=== PATIENT | male | born 1960 | race Caucasian/White ===

== ENCOUNTER 2016-12-22 12:23 | Emergency (ER) | payer OTHER ==
[2016-12-22 12:42] LABS: Glucose,Whole Blood 98 mg/dL (75-99)
[2016-12-22] MEDS ORDERED: RX INFO: IV CONTRAST WAS GIVEN 1 EACH MISC MISCELLANE PRN (12:48)
[2016-12-22] MEDS ORDERED: SODIUM CHLORIDE 0.9% 1,000 ML IV STA ×2 (12:48)
[2016-12-22] MEDS ORDERED: MORPHINE SULFATE 4 MG/ML SYRINGE IVP STA ×2 (12:49→14:24)
[2016-12-22 13:02] LABS: Basophils # (A) 0.1 k/uL (0-0.2); Basophils % (A) 1 %; CH 29.9; CHCM 34.9; Eosinophils # (A) 0.3 k/uL (0-0.7); Eosinophils % (A) 4 %; HCT 44.7 % (39.0-53.0); HDW 2.76; HGB 15.8 gm/dL (13.0-17.5); Luc # (Auto) 0.24; Luc % (Auto) 3; Lymphocytes % (A) 38 %; MCH 30.4 pg (25.0-35.0); MCHC 35.3 g/dL (31.0-37.0); MCV 86.1 fL (80.0-100.0); Mean Platelet Volume 7.5; Monocytes # (A) 0.4 k/uL (0-1.0); Monocytes % (A) 6 %; Neutrophils # (A) 3.8 k/uL (1.3-7.7); Neutrophils % (A) 48 %; RBC 5.19 m/uL (4.30-5.90); RDW 13.3 % (11.5-15.5); WBC 7.9 k/uL (3.8-10.6); WBC (Perox) 8.22
--- NOTE | 2016-12-22 13:06 | XR ---
EXAMINATION TYPE: XR shoulder limited LT DATE OF EXAM: 12/22/2016 COMPARISON: NONE HISTORY: Pain TECHNIQUE: One view is submitted. FINDINGS: The osseous structures are intact. There is no acute fracture or dislocation. Arthropathy of the AC joint noted.. IMPRESSION: 1. No acute process.
--- NOTE | 2016-12-22 13:08 | XR ---
EXAMINATION TYPE: XR chest 1V portable DATE OF EXAM: 12/22/2016 HISTORY: trauma. REFERENCE: NONE. FINDINGS: There are multiple, bilateral pulmonary nodules, likely representing granulomas. Heart size is upper limits of normal. Pleural spaces are clear. No definite shoulder abnormality is seen. IMPRESSION: 1. PROBABLE OLD GRANULOMATOUS DISEASE. 2. BORDERLINE CARDIOMEGALY.
--- NOTE | 2016-12-22 13:09 | XR ---
EXAMINATION TYPE: XR pelvis AP view DATE OF EXAM: 12/22/2016 COMPARISON: NONE HISTORY: Pain The osseous structures are intact and the joint spaces are preserved. No acute fracture is seen. Vi sualized bowel gas pattern is nonspecific. Degenerative change lower lumbar spine. Chronic deformity of the right iliac bone. Previous surgery suggested. Arthropathy of the hips. IMPRESSION: 1. No acute fracture. 2. There is a chronic deformity of the right iliac bone which may be either postsurgical or related t o osteochondroma. In the absence of a history of trauma or bone scan.
[2016-12-22 13:13] LABS: ALT 32 U/L (21-72); AST 32 U/L (17-59); Alcohol <10 mg/dL; Alkaline Phosphatase 64 U/L (38-126); Amylase 72 U/L (30-110); Anion Gap 10 mmol/L; Blood Urea Nitrogen 22 mg/dL (9-20); Calcium 9.5 mg/dL (8.4-10.2); Carbon Dioxide 24 mmol/L (22-30); Chloride 108 mmol/L (98-107); Glucose 98 mg/dL (74-99); Non-African American GFR(MDRD) >60 (>60 ml/min/1.73 sqM); Potassium 4.1 mmol/L (3.5-5.1); Sodium 142 mmol/L (137-145); Total Bilirubin 0.3 mg/dL (0.2-1.3)
[2016-12-22 13:20] LABS: Partial Thromboplastin Time 22.7 sec (22.0-30.0)
--- NOTE | 2016-12-22 13:29 | ED ---
General Adult HPI - General Chief complaint: Fall Stated complaint: shoulder injury Time Seen by Provider: 12/22/16 12:32 Source: patient, RN notes reviewed, old records reviewed Mode of arrival: ambulatory Limitations: no limitations - History of Present Illness Initial comments: This is a 56-year-old male to the ER for evaluation. Patient presented today for evaluation regard to trauma. Patient states he was doing some work on his roof fell backwards landing on his left shoulder. Complaining of severe left shoulder pain. Patient denies loss of consciousness. But there is had. Patient denies any other injuries, was able to ambulate, did walk into emergency room under his own power. - Related Data Home Medications Medication Instructions Recorded Confirmed Calcium Carbonate [Tums] 1,000 mg PO QID PRN 12/22/16 12/22/16 Previous Rx's Medication Instructions Recorded HYDROcodone/APAP 5-325MG [Susan 1 tab PO Q6HR PRN #30 tab 12/22/16 5-325] Naproxen [Naprosyn] 500 mg PO Q12HR PRN #30 tab 12/22/16 Allergies Allergy/AdvReac Type Severity Reaction Status Date / Time No Known Allergies Allergy Verified 12/22/16 14:13 Review of Systems ROS Statement: Those systems with pertinent positive or pertinent negative responses have been documented in the HPI. ROS Other: All systems not noted in ROS Statement are negative. Past Medical History Additional Past Medical History / Comment(s): one kidney History of Any Multi-Drug Resistant Organisms: None Reported Past Surgical History: No Surgical Hx Reported Additional Past Surgical History / Comment(s): ear Past Psychological History: No Psychological Hx Reported Smoking Status: Never smoker Past Alcohol Use History: None Reported Past Drug Use History: None Reported General Exam - General Exam Comments Initial Comments: GCS of 15, airways patent, trachea is midline, no shortness of breath and breath sounds are equal bilaterally. Limitations: no limitations General appearance: alert, in no apparent distress Head exam: Present: atraumatic, normocephalic, normal inspection Eye exam: Present: normal appearance, PERRL, EOMI. Absent: scleral icterus, conjunctival injection, periorbital swelling ENT exam: Present: normal exam, mucous membranes moist Neck exam: Present: normal inspection. Absent: tenderness, meningismus, lymphadenopathy Respiratory exam: Present: normal lung sounds bilaterally. Absent: respiratory distress, wheezes, rales, rhonchi, stridor Cardiovascular Exam: Present: regular rate, normal rhythm, normal heart sounds. Absent: systolic murmur, diastolic murmur, rubs, gallop, clicks GI/Abdominal exam: Present: soft, normal bowel sounds. Absent: distended, tenderness, guarding, rebound, rigid Extremities exam: Present: normal inspection, full ROM, normal capillary refill , other (Left upper extremity deformity, likely dislocation). Absent: tenderness, pedal edema, joint swelling, calf tenderness Back exam: Present: normal inspection Neurological exam: Present: alert, oriented X3, CN II-XII intact Psychiatric exam: Present: normal affect, normal mood Skin exam: Present: warm, dry, intact, normal color. Absent: rash Course Vital Signs 12/22/16 12:24 Temperature 97.5 F L Pulse Rate 76 Respiratory 22 Rate Blood Pressure 155/94 O2 Sat by Pulse 97 Oximetry - Reevaluation(s) Reevaluation #1: 12/22/16 13:29 Pain is adequate pain relief at this time Reevaluation #2: 12/22/16 14:55 Patient has adequate pain control EKG Findings - EKG Comments: EKG Findings:: EKG shows normal sinus rhythm rate of 70, DE 134, QRS 84, QTC 421 Medical Decision Making - Medical Decision Making 56 [facility] for evaluation status post fall, patient has no injury from fall of shoulder pain. We'll treat with pain control and patient can be discharged home - Lab Data Result diagrams: 12/22/16 12:48 12/22/16 12:48 Lab Results 12/22/16 12/22/16 12/22/16 Range/Units 12:40 12:48 12:48 WBC 7.9 (3.8-10.6) k/uL RBC 5.19 (4.30-5.90) m/uL Hgb 15.8 (13.0-17.5) gm/dL Hct 44.7 (39.0-53.0) % MCV 86.1 (80.0-100.0) fL MCH 30.4 (25.0-35.0) pg MCHC 35.3 (31.0-37.0) g/dL RDW 13.3 (11.5-15.5) % Plt Count 191 (150-450) k/uL Neutrophils % 48 % Lymphocytes % 38 % Monocytes % 6 % Eosinophils % 4 % Basophils % 1 % Neutrophils # 3.8 (1.3-7.7) k/uL Lymphocytes # 3.0 (1.0-4.8) k/uL Monocytes # 0.4 (0-1.0) k/uL Eosinophils # 0.3 (0-0.7) k/uL Basophils # 0.1 (0-0.2) k/uL PT (9.0-12.0) sec INR (<1.2) APTT (22.0-30.0) sec Sodium (137-145) mmol/L Potassium (3.5-5.1) mmol/L Chloride (98-107) mmol/L Carbon Dioxide (22-30) mmol/L Anion Gap mmol/L BUN (9-20) mg/dL Creatinine (0.66-1.25) mg/dL Est GFR (MDRD) Af Amer (>60 ml/min/1.73 sqM) Est GFR (MDRD) Non-Af (>60 ml/min/1.73 sqM) Glucose (74-99) mg/dL POC Glucose (mg/dL) 98 (75-99) mg/dL POC Glu Certified Medical Technician ID Plasma Lactic Acid Mayank (0.7-2.0) mmol/L Calcium (8.4-10.2) mg/dL Total Bilirubin (0.2-1.3) mg/dL AST (17-59) U/L ALT (21-72) U/L Alkaline Phosphatase (38-126) U/L Total Creatine Kinase (55-170) U/L CK-MB (CK-2) (0.0-2.4) ng/mL CK-MB (CK-2) Rel Index Troponin I (0.000-0.034) ng/mL Total Protein (6.3-8.2) g/dL Albumin (3.5-5.0) g/dL Amylase (30-110) U/L Lipase (23-300) U/L Urine Color Urine Appearance (Clear) Urine pH (5.0-8.0) Ur Specific Kerrick (1.001-1.035) Urine Protein (Negative) Urine Glucose (UA) (Negative) Urine Ketones (Negative) Urine Blood (Negative) Urine Nitrite (Negative) Urine Bilirubin (Negative) Urine Urobilinogen (<2.0) mg/dL Ur Leukocyte Esterase (Negative) Urine Opiates Screen (NotDetected) Ur Oxycodone Screen (NotDetected) Urine Methadone Screen (NotDetected) Ur Propoxyphene Screen (NotDetected) Ur Barbiturates Screen (NotDetected) U Tricyclic Antidepress (NotDetected) Ur Phencyclidine Scrn (NotDetected) Ur Amphetamines Screen (NotDetected) U Methamphetamines Scrn (NotDetected) U Benzodiazepines Scrn (NotDetected) Urine Cocaine Screen (NotDetected) U Marijuana (THC) Screen (NotDetected) Serum Alcohol mg/dL Blood Type O Positive Blood Type Recheck No Antibody Screen NEGATIVE Spec Expiration Date 12/25/2016 - 234712/22/16 12/22/16 12/22/16 Range/Units 12:48 12:48 12:48 WBC (3.8-10.6) k/uL RBC (4.30-5.90) m/uL Hgb (13.0-17.5) gm/dL Hct (39.0-53.0) % MCV (80.0-100.0) fL MCH (25.0-35.0) pg MCHC (31.0-37.0) g/dL RDW (11.5-15.5) % Plt Count (150-450) k/uL Neutrophils % % Lymphocytes % % Monocytes % % Eosinophils % % Basophils % % Neutrophils # (1.3-7.7) k/uL Lymphocytes # (1.0-4.8) k/uL Monocytes # (0-1.0) k/uL Eosinophils # (0-0.7) k/uL Basophils # (0-0.2) k/uL PT 10.0 (9.0-12.0) sec INR 1.0 (<1.2) APTT 22.7 (22.0-30.0) sec Sodium 142 (137-145) mmol/L Potassium 4.1 (3.5-5.1) mmol/L Chloride 108 H (98-107) mmol/L Carbon Dioxide 24 (22-30) mmol/L Anion Gap 10 mmol/L BUN 22 H (9-20) mg/dL Creatinine 1.17 (0.66-1.25) mg/dL Est GFR (MDRD) Af Amer >60 (>60 ml/min/1.73 sqM) Est GFR (MDRD) Non-Af >60 (>60 ml/min/1.73 sqM) Glucose 98 (74-99) mg/dL POC Glucose (mg/dL) (75-99) mg/dL POC Glu Certified Medical Technician ID Plasma Lactic Acid Mayank (0.7-2.0) mmol/L Calcium 9.5 (8.4-10.2) mg/dL Total Bilirubin 0.3 (0.2-1.3) mg/dL AST 32 (17-59) U/L ALT 32 (21-72) U/L Alkaline Phosphatase 64 (38-126) U/L Total Creatine Kinase 391 H (55-170) U/L CK-MB (CK-2) 6.3 H* (0.0-2.4) ng/mL CK-MB (CK-2) Rel Index 1.6 Troponin I <0.012 (0.000-0.034) ng/mL Total Protein 7.0 (6.3-8.2) g/dL Albumin 4.3 (3.5-5.0) g/dL Amylase 72 (30-110) U/L Lipase 127 (23-300) U/L Urine Color Urine Appearance (Clear) Urine pH (5.0-8.0) Ur Specific Kerrick (1.001-1.035) Urine Protein (Negative) Urine Glucose (UA) (Negative) Urine Ketones (Negative) Urine Blood (Negative) Urine Nitrite (Negative) Urine Bilirubin (Negative) Urine Urobilinogen (<2.0) mg/dL Ur Leukocyte Esterase (Negative) Urine Opiates Screen (NotDetected) Ur Oxycodone Screen (NotDetected) Urine Methadone Screen (NotDetected) Ur Propoxyphene Screen (NotDetected) Ur Barbiturates Screen (NotDetected) U Tricyclic Antidepress (NotDetected) Ur Phencyclidine Scrn (NotDetected) Ur Amphetamines Screen (NotDetected) U Methamphetamines Scrn (NotDetected) U Benzodiazepines Scrn (NotDetected) Urine Cocaine Screen (NotDetected) U Marijuana (THC) Screen (NotDetected) Serum Alcohol <10 mg/dL Blood Type Blood Type Recheck Antibody Screen Spec Expiration Date 12/22/16 12/22/16 Range/Units 12:48 14:04 WBC (3.8-10.6) k/uL RBC (4.30-5.90) m/uL Hgb (13.0-17.5) gm/dL Hct (39.0-53.0) % MCV (80.0-100.0) fL MCH (25.0-35.0) pg MCHC (31.0-37.0) g/dL RDW (11.5-15.5) % Plt Count (150-450) k/uL Neutrophils % % Lymphocytes % % Monocytes % % Eosinophils % % Basophils % % Neutrophils # (1.3-7.7) k/uL Lymphocytes # (1.0-4.8) k/uL Monocytes # (0-1.0) k/uL Eosinophils # (0-0.7) k/uL Basophils # (0-0.2) k/uL PT (9.0-12.0) sec INR (<1.2) APTT (22.0-30.0) sec Sodium (137-145) mmol/L Potassium (3.5-5.1) mmol/L Chloride (98-107) mmol/L Carbon Dioxide (22-30) mmol/L Anion Gap mmol/L BUN (9-20) mg/dL Creatinine (0.66-1.25) mg/dL Est GFR (MDRD) Af Amer (>60 ml/min/1.73 sqM) Est GFR (MDRD) Non-Af (>60 ml/min/1.73 sqM) Glucose (74-99) mg/dL POC Glucose (mg/dL) (75-99) mg/dL POC Glu Certified Medical Technician ID Plasma Lactic Acid Mayank 1.1 (0.7-2.0) mmol/L Calcium (8.4-10.2) mg/dL Total Bilirubin (0.2-1.3) mg/dL AST (17-59) U/L ALT (21-72) U/L Alkaline Phosphatase (38-126) U/L Total Creatine Kinase (55-170) U/L CK-MB (CK-2) (0.0-2.4) ng/mL CK-MB (CK-2) Rel Index Troponin I (0.000-0.034) ng/mL Total Protein (6.3-8.2) g/dL Albumin (3.5-5.0) g/dL Amylase (30-110) U/L Lipase (23-300) U/L Urine Color Light Yellow Urine Appearance Clear (Clear) Urine pH 6.5 (5.0-8.0) Ur Specific Kerrick 1.020 (1.001-1.035) Urine Protein Negative (Negative) Urine Glucose (UA) Negative (Negative) Urine Ketones Negative (Negative) Urine Blood Negative (Negative) Urine Nitrite Negative (Negative) Urine Bilirubin Negative (Negative) Urine Urobilinogen <2.0 (<2.0) mg/dL Ur Leukocyte Esterase Negative (Negative) Urine Opiates Screen Not Detected (NotDetected) Ur Oxycodone Screen Not Detected (NotDetected) Urine Methadone Screen Not Detected (NotDetected) Ur Propoxyphene Screen Not Detected (NotDetected) Ur Barbiturates Screen Not Detected (NotDetected) U Tricyclic Antidepress Not Detected (NotDetected) Ur Phencyclidine Scrn Not Detected (NotDetected) Ur Amphetamines Screen Not Detected (NotDetected) U Methamphetamines Scrn Not Detected (NotDetected) U Benzodiazepines Scrn Not Detected (NotDetected) Urine Cocaine Screen Detected H (NotDetected) U Marijuana (THC) Screen Not Detected (NotDetected) Serum Alcohol mg/dL Blood Type Blood Type Recheck Antibody Screen Spec Expiration Date - Radiology Data Radiology results: report reviewed (CT brain C-spine, CT left shoulder, chest x- ray pelvis x-ray x-ray of left shoulder negative for traumatic injury), image reviewed Disposition Clinical Impression: Fall, Contusion of rib on left side, Contusion of left shoulder Disposition: HOME SELF-CARE Condition: Good Instructions: Fall Prevention for Older Adults (ED), Shoulder Pain (ED) Prescriptions: HYDROcodone/APAP 5-325MG [Susan 5-325] 1 tab PO Q6HR PRN #30 tab PRN Reason: Pain Naproxen [Naprosyn] 500 mg PO Q12HR PRN #30 tab PRN Reason: Pain Referrals: None,Stated [Primary Care Provider] - 1-2 days
[2016-12-22 13:31] LABS: Creatine Kinase 391 U/L (55-170)
[2016-12-22 13:42] LABS: Troponin I <0.012 ng/mL (0.000-0.034)
[2016-12-22 13:46] LABS: Creatine Kinase MB 6.3 ng/mL (0.0-2.4)
--- NOTE | 2016-12-22 14:09 | CT ---
EXAMINATION TYPE: CT brain ayaka garcia con DATE OF EXAM: 12/22/2016 COMPARISON: Previous study dated 09/15/2012 HISTORY: Fall from 2nd story roof CT DLP: 1845.39 mGycm Automated exposure control for dose reduction was used. TECHNIQUE: CT scan of the head and cervical spine are performed without contrast. FINDINGS: BRAIN: Central structures are midline. There is no evidence of hydrocephalus. No acute focal lesion, mass effect or midline shift is seen. I do not see evidence of intracranial blood. There is mucoperiosteal thickening involving the ethmoid sinuses. There is postsurgical change involv ing the maxillary sinuses. There is underaeration of the right mastoid air cells. This is chronic. IMPRESSION: 1. NO ACUTE INTRACRANIAL ABNORMALITY. 2. MUCOPERIOSTEAL THICKENING INVOLVING THE ETHMOID SINUSES WELL POSTSURGICAL CHANGE INVOLVING T HE MAXILLARY SINUSES. 3. UNDERAERATION OF THE MASTOIDS MAY REFLECT CHRONIC MASTOIDITIS. CERVICAL SPINE: There are emphysematous changes throughout the lungs. There is shotty cervical adenopathy. Prevertebral soft tissues are otherwise unremarkable. Vertebral body height and alignment are maintained. Atlantoaxial relationships are normal. There is d isc space loss and hypertrophic spondylosis most marked at C5-6 but also present at C4-5. There is un covertebral joint disease present at these levels. No fractures are seen. IMPRESSION: 1. NO ACUTE OSSEOUS LESION. 2. DEGENERATIVE CHANGE. 3. EMPHYSEMATOUS CHANGES THROUGHOUT THE LUNGS.
--- NOTE | 2016-12-22 14:15 | CT ---
EXAMINATION TYPE: CT shoulder LT w con DATE OF EXAM: 12/22/2016 COMPARISON: NONE HISTORY: Fall from 2nd story roof CT DLP: 328.42 mGycm Automated exposure control for dose reduction was used. CONTRAST: Performed with IV Contrast, patient injected with 100 ml mL of Omnipaque 300. FINDINGS: Axial, coronal, sagittal and 3-D reconstruction performed at the workstation are performed. Osseous structures intact. Joint spaces preserved. No soft tissue abnormality seen. IMPRESSION: NO ACUTE FRACTURE.
--- NOTE | 2016-12-22 14:16 | CT ---
EXAMINATION TYPE: CT ChestAbdPelvis w con DATE OF EXAM: 12/22/2016 COMPARISON: Previous study dated 09/15/2012. HISTORY: Fall from 2nd story roof CT DLP: 647.61 mGycm Automated exposure control for dose reduction was used. TECHNIQUE: Helical acquisition through the abdomen and pelvis was obtained without oral contrast but following the intravenous administration of 100 ml mL of Omnipaque 300. The data was formatted in th e axial, coronal and sagittal projections. FINDINGS: There is a calcified granuloma within the right midlung no other definite parenchymal lesio ns are seen. There is no evidence of pneumothorax or significant lung contusion. There is no significant axillary, mediastinal or hilar adenopathy. There is no pleural or pericardial fluid. There is moderate streak artifact through the abdomen due to the patient's hands being at his side. T he liver, spleen and gallbladder appear normal. Both adrenal glands appear normal. There is an 8 mm calculus in the posterior mid polar calyx of the right kidney. There is a second 7 m m calculus in the anterior lower pole calyx of the right kidney. There is no evidence of hydronephros is or nephrolithiasis. The left kidney is not visualized. The pancreas is unremarkable. There is no significant retroperitoneal, iliac or inguinal adenopathy. The bladder is unremarkable. There is no significant diverticular change and there is no radiographic evidence of diverticulitis. The appendix is normal. Small bowel loops are unremarkable. There is no free fluid and no free air. There is hypertrophic spondylosis throughout the lower dorsal spine. There is facet arthropathy in th e lower lumbar spine. No pelvic fracture is seen. No spinal fracture is seen. No rib fractures are evident. IMPRESSION: 1. NO ACUTE POSTTRAUMATIC ABNORMALITY. 2. EVIDENCE OF OLD GRANULOMATOUS DISEASE. 3. NONOBSTRUCTING RIGHT-SIDED NEPHROLITHIASIS. 4. NONVISUALIZATION OF THE LEFT KIDNEY. 5. DEGENERATIVE CHANGES WITHIN THE SPINE.
[2016-12-22] MEDS ORDERED: ACETAMINOPHEN IV (For NPO) 1,000 MG in EMPTY BAG 1 BAG IVPB STA (14:24)
[2016-12-22] MEDS ORDERED: KETOROLAC 30 MG/ML 1 ML VIAL IVP STA (14:24)
[2016-12-22 14:42] LABS: Appearance,Urine Clear (Clear); Bilirubin,Urine Negative (Negative); Glucose,Urine (UA) Negative (Negative); Ketones,Urine Negative (Negative); Leukocyte Esterase,Urine Negative (Negative); Nitrite,Urine Negative (Negative); PH, Urine 6.5 (5.0-8.0); Protein,Urine Negative (Negative); UA Billing (MACRO vs. MICRO) CHEM; Urobilinogen,Urine <2.0 mg/dL (<2.0)
[2016-12-22 15:20] VITALS: BP 150/90; PULSE 65; RESP 18; TEMP 97.9
== END 2016-12-22 15:19 | disposition home or self-care (01) ==
LOC: EC 12:23
DX: S40.012A Contusion of left shoulder, initial encounter (principal); S20.212A Contusion of left front wall of thorax, initial encounter; Z53.20 Procedure and treatment not carried out because of patient's decision for unspecified reasons; W13.2XXA Fall from, out of or through roof, initial encounter; Y93.89 Activity, other specified
CPT/HCPCS: 36415; 93005; 86900; 86901; 80053; 82150; 82550; 82553; 83605; 83690; 84484; 85025; 85610; 85730; 86850; 81003; 80306; 80320; 71010; 72170; 73020; 72125; 70450; 71260; 74177; 73201; 99285; 96374; 96361 ×3; J2270; Q9967

== ENCOUNTER 2017-06-28 13:10 | Emergency (ER) | payer OTHER ==
[2017-06-28 13:54] VITALS: BP 164/77; PULSE 71; RESP 20; TEMP 98.3
--- NOTE | 2017-06-28 14:13 | XR ---
EXAMINATION TYPE: XR shoulder complete LT DATE OF EXAM: 06/28/2017 CLINICAL HISTORY: pain COMPARISON: NONE TECHNIQUE: Three views of the left shoulder are obtained. FINDINGS: There is no acute fracture/dislocation evident. The acromioclavicular and glenohumeral marty int spaces appear mildly narrowed. Calcific tendinopathy at the insertion of the supraspinatus tendo n. The visualized ribs are intact and unremarkable. IMPRESSION: 1. There is no acute fracture or dislocation. Calcific tendinopathy at the insertion of the supraspin atus tendon. ICD 10 NO FRACTURE, INITIAL EVALUATION
--- NOTE | 2017-06-28 14:31 | ED ---
Upper Extremity HPI - General Chief Complaint: Extremity Injury, Upper Stated Complaint: shoulder pain Time Seen by Provider: 06/28/17 14:13 Source: patient, RN notes reviewed, old records reviewed Mode of arrival: ambulatory Limitations: no limitations - History of Present Illness Initial Comments: This patient is a 56-year-old male presents with left shoulder pain. He was at work and was lifting something heavy when it dropped and he felt a pull on his left shoulder. He has a history of a left shoulder rotator cuff repair. This was done a few years ago. Patient states that he yesterday he was able to do range of motion of the shoulder afterwards but today he is only able to extend a shorter 20.You didn't answer me all the pain. He denies any numbness or tingling down the armor hands. He reports that he has a shoulder brace that he has not used it this time. He's been taking Motrin Tylenol for pain. - Related Data Home Medications Medication Instructions Recorded Confirmed Calcium Carbonate [Tums] 1,000 mg PO QID PRN 12/22/16 12/22/16 Previous Rx's Medication Instructions Recorded HYDROcodone/APAP 5-325MG [Stanley 1 tab PO Q6HR PRN #30 tab 12/22/16 5-325] Naproxen [Naprosyn] 500 mg PO Q12HR PRN #30 tab 12/22/16 HYDROcodone/APAP 5-325MG [Stanley 1 - 2 tab PO Q6HR PRN #12 tab 06/28/17 5-325] Naproxen [EC-Naprosyn] 500 mg PO BID #20 tablet. 06/28/17 Allergies Allergy/AdvReac Type Severity Reaction Status Date / Time No Known Allergies Allergy Verified 06/28/17 13:54 Review of Systems ROS Statement: Those systems with pertinent positive or pertinent negative responses have been documented in the HPI. ROS Other: All systems not noted in ROS Statement are negative. Past Medical History Additional Past Medical History / Comment(s): one kidney, kidney stones History of Any Multi-Drug Resistant Organisms: None Reported Past Surgical History: Orthopedic Surgery Additional Past Surgical History / Comment(s): ear, lt rotator cuff, cleft plate Past Psychological History: No Psychological Hx Reported Smoking Status: Never smoker Past Alcohol Use History: None Reported Past Drug Use History: None Reported General Exam - General Exam Comments Initial Comments: 56-year-old male. No distress. Limitations: no limitations General appearance: alert, in no apparent distress Head exam: Present: atraumatic, normocephalic, normal inspection Eye exam: Present: normal appearance, PERRL, EOMI. Absent: scleral icterus, conjunctival injection, periorbital swelling Neck exam: Present: normal inspection. Absent: tenderness, meningismus, lymphadenopathy Respiratory exam: Present: normal lung sounds bilaterally. Absent: respiratory distress, wheezes, rales, rhonchi, stridor Cardiovascular Exam: Present: regular rate, normal rhythm, normal heart sounds. Absent: systolic murmur, diastolic murmur, rubs, gallop, clicks Left Shoulder Exam: Present: normal inspection, tenderness (over anterior shoulder). Absent: full ROM (only able to extend to 20 degrees. Unable to complete over head movement. ) Upper Arm exam: Present: normal inspection, full ROM Elbow exam: Present: normal inspection, full ROM Forearm Wrist exam: Present: normal inspection, full ROM Back exam: Present: normal inspection Neurological exam: Present: alert, oriented X3 Psychiatric exam: Present: normal affect, normal mood Course Vital Signs 06/28/17 13:51 Temperature 98.3 F Pulse Rate 71 Respiratory 20 Rate Blood Pressure 164/77 O2 Sat by Pulse 97 Oximetry Medical Decision Making - Medical Decision Making 56-year-old male presents with the left shoulder pain after an injury at work. Patient ports that he has no overhead range of motion with his left shoulder. History of previous shoulder injuries. I discussed he likely has a rotator cuff tear due to limited range of motion at this time. Patient states he has a splint at home would you like to use. Refuses the splint in the emergency department. Patient will be advisedOrthopedic specialist discharged with antiinflammatory and pain medication. - Radiology Data Radiology results: report reviewed There's no fracture just location. Calcific tendinitis the insertion of the supraspinatus tendon. Disposition Clinical Impression: Left rotator cuff tear arthropathy Disposition: HOME SELF-CARE Condition: Good Instructions: Rotator Cuff Injury (ED) Additional Instructions: Should use the sling. Take pain medication and anti-inflammatory medicine. Return to emergency department if any alarming signs or symptoms occur. Prescriptions: HYDROcodone/APAP 5-325MG [Stanley 5-325] 1 - 2 tab PO Q6HR PRN #12 tab PRN Reason: Pain Naproxen [EC-Naprosyn] 500 mg PO BID #20 tablet.dr Referrals: Trung Sexton MD [REFERRING] - 1-2 days Time of Disposition: 14:30
== END 2017-06-28 14:37 | disposition home or self-care (01) ==
LOC: EC 13:10
DX: M12.512 Traumatic arthropathy, left shoulder (principal); Z98.890 Other specified postprocedural states; Z53.29 Procedure and treatment not carried out because of patient's decision for other reasons; X50.0XXA Overexertion from strenuous movement or load, initial encounter; Y92.69 Other specified industrial and construction area as the place of occurrence of the external cause; Y93.89 Activity, other specified; Y99.0 Civilian activity done for income or pay
CPT/HCPCS: 99284

== ENCOUNTER 2018-12-27 17:49 | Emergency (ER) | payer OTHER ==
[2018-12-27] MEDS ORDERED: ceFAZolin 1,000 MG VIAL (IM USE) IM STA (18:51)
--- NOTE | 2018-12-27 18:53 | ED ---
Extremity Problem HPI - General Chief complaint: Extremity Problem,Nontraumatic Stated complaint: Leg swelling Time Seen by Provider: 12/27/18 18:11 Source: patient Mode of arrival: ambulatory Limitations: no limitations - History of Present Illness Initial comments: 58-year-old male patient presents to the emergency department today for evaluation of swelling and erythema to the left leg. Patient woke Tuesday morning with significant left knee swelling, redness, and pain. States he presented to [facility] for evaluation and was diagnosed with arthritis and started on Bactrim. Patient states that he started the antibiotic on Tuesday. He reports that the swelling and redness have improved somewhat however when he woke this morning his leg was more swollen than usual. Patient states he is having some discomfort to the knee and thigh. He denies any fever or chills. He is ambulating without difficulty. Patient denies any recent rash, shortness breath, chest pain, abdominal pain, nausea, vomiting, diarrhea, constipation, back pain, numbness, tingling, dizziness, weakness, hematuria, dysuria, urinary urgency, urinary frequency, headache, visual changes, or any other complaints. - Related Data Home Medications Medication Instructions Recorded Confirmed Sulfamethox-Tmp 800-160Mg [Bactrim 1 tab PO Q12HR 12/27/18 12/27/18 DS 800-160 mg] Previous Rx's Medication Instructions Recorded Cephalexin [Keflex] 500 mg PO Q6HR #40 cap 12/27/18 Allergies Allergy/AdvReac Type Severity Reaction Status Date / Time No Known Allergies Allergy Verified 12/27/18 18:50 Review of Systems ROS Statement: Those systems with pertinent positive or pertinent negative responses have been documented in the HPI. ROS Other: All systems not noted in ROS Statement are negative. Past Medical History Additional Past Medical History / Comment(s): one kidney, kidney stones, History of Any Multi-Drug Resistant Organisms: MRSA Date of last positivie culture/infection: 1994 Past Surgical History: Orthopedic Surgery Additional Past Surgical History / Comment(s): ear, lt rotator cuff, cleft plate Past Psychological History: No Psychological Hx Reported Smoking Status: Never smoker Past Alcohol Use History: None Reported Past Drug Use History: None Reported General Exam Limitations: no limitations General appearance: alert, in no apparent distress, other (Physical well- developed, well-nourished adult male patient in no acute distress. Vital signs upon presentation are temperature 98.2F, pulse 79, respirations 18, blood pressure 133/83, pulse ox 96% on room air.) Eye exam: Present: normal appearance, PERRL, EOMI. Absent: scleral icterus, conjunctival injection, periorbital swelling ENT exam: Present: normal exam, normal oropharynx, mucous membranes moist Respiratory exam: Present: normal lung sounds bilaterally. Absent: respiratory distress, wheezes, rales, rhonchi, stridor Cardiovascular Exam: Present: regular rate, normal rhythm, normal heart sounds. Absent: systolic murmur, diastolic murmur, rubs, gallop, clicks GI/Abdominal exam: Present: soft, normal bowel sounds. Absent: distended, tenderness, guarding, rebound, rigid Extremities exam: Present: full ROM, normal capillary refill, other (There is erythema over the left leg extending from just above the knee down to the ankle anteriorly. There is mild, nonpitting generalized soft tissue swelling. No calf tenderness. Patient exhibits full range of motion without difficulty or limitation. Skin is otherwise pink, warm, dry. Cap refills less than 3 seconds. Pedal and posttibial pulses are 2+ and equal bilaterally.). Absent: normal inspection, tenderness, pedal edema, joint swelling, calf tenderness Neurological exam: Present: alert, oriented X3, CN II-XII intact Psychiatric exam: Present: normal affect, normal mood Skin exam: Present: warm, dry, intact, normal color. Absent: rash Course Vital Signs 12/27/18 17:57 Temperature 98.2 F Pulse Rate 79 Respiratory 18 Rate Blood Pressure 133/83 O2 Sat by Pulse 96 Oximetry Medical Decision Making - Medical Decision Making 58-year-old male patient presented to the emergency department today for evaluation of swelling and redness of the left leg. Patient was seen and evaluated at [facility] on Tuesday diagnosed with arthritis and started on Bactrim. Patient reports that the swelling and redness have improved however his leg is now swollen. Physical examination reveals erythema extending from just above the knee down to the ankle anteriorly. There is mild general, non-pitting edema to the leg. No calf tenderness. Patient has no risk factors for thrombosis. Patient symptoms are consistent with cellulitis. He is ambulatory and tolerating oral intake so we'll treat with antibiotics. He is currently taking Bactrim, we'll add Keflex. He'll be given an IM dose of Ancef here in the emergency department. He does have an appointment with his primary care physician tomorrow at 2:30. I did draw a line around the area of cellulitis. Return parameters were discussed in detail. He verbalizes understanding and agrees with this plan. Disposition Clinical Impression: Cellulitis of left leg Disposition: HOME SELF-CARE Condition: Good Instructions (If sedation given, give patient instructions): Cellulitis (ED) Additional Instructions: Complete antibiotic prescriptions in full. Take Tylenol Motrin for pain control. Follow-up with your primary care physician as you have planned tomorrow. Return immediately if he develops fever, vomiting, or severe pain. Return for any other new, worsening, or concerning symptoms. Prescriptions: Cephalexin [Keflex] 500 mg PO Q6HR #40 cap Is patient prescribed a controlled substance at d/c from ED?: No Referrals: None,Stated [Primary Care Provider] - 1-2 days Time of Disposition: 19:10
[2018-12-27 19:07] VITALS: BP 133/91; PULSE 80; RESP 19; TEMP 98.3
== END 2018-12-27 19:07 | disposition home or self-care (01) ==
LOC: EC 17:49
DX: L03.116 Cellulitis of left lower limb (principal)
CPT/HCPCS: 99283; 96372; J0690

== ENCOUNTER 2019-06-10 19:25 | Emergency (ER) | payer OTHER ==
[2019-06-10] MEDS ORDERED: HYDROmorphone 1 MG/ML 1 ML SYRINGE IVP STA (19:38)
[2019-06-10] MEDS ORDERED: SODIUM CHLORIDE 0.9% 1,000 ML IV STA (19:38)
[2019-06-10 19:53] LABS: Glucose,Whole Blood 109 mg/dL (75-99)
[2019-06-10 19:55] LABS: ALT 16 U/L (4-49); AST 26 U/L (17-59); African American GFR (CKD) 68 (>60 ml/min/1.73 sqM); Albumin 4.6 g/dL (3.5-5.0); Alcohol <10 mg/dL; Alkaline Phosphatase 80 U/L (38-126); Amylase 99 U/L (30-110); Anion Gap 14 mmol/L; Blood Urea Nitrogen 25 mg/dL (9-20); Carbon Dioxide 21 mmol/L (22-30); Chloride 106 mmol/L (98-107); Glucose 112 mg/dL (74-99); Non-African American GFR(CKD) 58 (>60 ml/min/1.73 sqM); Potassium 4.4 mmol/L (3.5-5.1); Sodium 141 mmol/L (137-145); Total Bilirubin 0.4 mg/dL (0.2-1.3); Total Protein 7.7 g/dL (6.3-8.2)
[2019-06-10 20:01] LABS: Basophils # (A) 0.1 k/uL (0-0.2); Basophils % (A) 1 %; Eosinophils # (A) 0.3 k/uL (0-0.7); Eosinophils % (A) 4 %; HCT 49.2 % (39.0-53.0); HGB 16.5 gm/dL (13.0-17.5); Lymphocytes # (A) 3.5 k/uL (1.0-4.8); Lymphocytes % (A) 44 %; MCH 29.3 pg (25.0-35.0); MCHC 33.6 g/dL (31.0-37.0); MCV 87.3 fL (80.0-100.0); Mean Platelet Volume 7.9; Monocytes # (A) 0.5 k/uL (0-1.0); Monocytes % (A) 6 %; Neutrophils # (A) 3.4 k/uL (1.3-7.7); Neutrophils % (A) 42 %; Platelet Count 267 k/uL (150-450); RBC 5.63 m/uL (4.30-5.90); RDW 13.5 % (11.5-15.5); WBC 8.1 k/uL (3.8-10.6)
[2019-06-10 20:03] LABS: Creatine Kinase 158 U/L (55-170)
[2019-06-10 20:06] LABS: INR 0.9 (<1.2); Partial Thromboplastin Time 22.2 sec (22.0-30.0); Prothrombin Time 9.7 sec (9.0-12.0)
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
[2019-06-10 20:17] LABS: Creatine Kinase MB 2.3 ng/mL (0.0-2.4); Troponin I <0.012 ng/mL (0.000-0.034)
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
[2019-06-10] MEDS ORDERED: ACET/COD 300 MG/30 MG STARTER PACK 6 TAB BTL PO STA (21:33)
[2019-06-10 21:53] VITALS: BP 138/84; PULSE 84; RESP 20; TEMP 98
== END 2019-06-10 21:50 | disposition home or self-care (01) ==
LOC: EC 19:25
DX: S42.102A Fracture of unspecified part of scapula, left shoulder, initial encounter for closed fracture (principal); S60.512A Abrasion of left hand, initial encounter; Z86.14 Personal history of Methicillin resistant Staphylococcus aureus infection; Z98.890 Other specified postprocedural states; V23.4XXA Motorcycle driver injured in collision with car, pick-up truck or van in traffic accident, initial encounter; Y92.89 Other specified places as the place of occurrence of the external cause
CPT/HCPCS: 36415; 86900; 86901; 80053; 82150; 82550; 82553; 83605; 83690; 84484; 85025; 85610; 85730; 86850; 72170; 71045; 72125; 70450; 71260; 74177; 99285; 96374; 96361 ×2; L0120; G0480; J1170; Q9967; 80320

== ENCOUNTER → 2019-06-11 | Outpatient (CLI) | payer OTHER ==
--- NOTE | 2019-06-11 12:56 | XR ---
EXAMINATION TYPE: XR hand complete RT DATE OF EXAM: 06/11/2019 CLINICAL HISTORY: Right hand pain after fall TECHNIQUE: Frontal, lateral and oblique images of the right hand are obtained. COMPARISON: None. FINDINGS: There is no acute fracture/dislocation evident in the right hand. The joint spaces in the right hand appear aligned with joint space narrowing as well as osseous perforation of the distal int erphalangeal joints and first carpometacarpal joint. Ulnar styloid erosion is seen that can be seen i n rheumatoid arthritis. There is focal soft tissue swelling of the second digit and fixed flexion def ormity of the distal ultrasound Irene joint of the second digit. IMPRESSION: Focal soft tissue swelling of the second digit and flexion deformity of the distal interp halangeal joint. Evaluate for clinical chronicity. There is no acute fracture or dislocation in the r ight hand. Makes mild right hand arthropathy with findings that can be seen in both rheumatoid and os teoarthritis.
== END | disposition home or self-care (01) ==
LOC: RADXRMAIN 12:22
PROVIDERS: ATTEND Internal Medicine
DX: M79.89 Other specified soft tissue disorders (principal); M19.041 Primary osteoarthritis, right hand; M06.841 Other specified rheumatoid arthritis, right hand

== ENCOUNTER → 2019-08-15 | Outpatient (CLI) | payer OTHER ==
--- NOTE | 2019-08-15 13:01 | CONS ---
CONSULTATION DATE OF SERVICE: 08/15/2019 A 58-year-old gentleman who has been evaluated [facility] for multiple awakenings from sleep, snoring and significant excessive daytime sleepiness. HISTORY OF PRESENT ILLNESS/SLEEP-WAKE EVALUATION: Patient's usual sleep schedule on working days from midnight until 6 a.m. and on weekend he can sleep all the time up to 3 days. No problems with falling asleep, although he has TV set in bedroom. He usually sleeps on the side position. He snores and wakes up from sleep with nocturia about 6 times. No history of hypnagogic hallucinations, sleep paralysis or cataplexy. Again, during the day, he feels extremely sleepy. [place] Sleepiness Scale is 16. He can take naps at any time and he could sleep for the whole day. PAST MEDICAL HISTORY: Positive for cleft palate, sinus problems, episodes of headaches. PAST SURGICAL HISTORY: Multiple surgeries for cleft palate. According to the patient, he still has a small opening in the back of his mouth. MEDICATIONS: None. SOCIAL HISTORY: Negative for smoking. Quit using alcohol about 30 years ago. FAMILY HISTORY: Hypertension, heart problems, hyperlipidemia, stroke, headaches, sinus problems, acid reflux. REVIEW OF SYSTEMS: Multiple awakenings from sleep with nocturia, extreme sleepiness during the day. PHYSICAL EXAM: gentleman without distress, BP 150/90, HR 63, RR 14, height 5 foot, 4-1/2 inches, weight 154.4 pounds with, body mass index 26. Temperature 98.1. Oxygen saturation at room air 94%. OROPHARYNX: Practically normal position of soft palate. Mallampati II. Significant restriction of nasal breathing bilaterally. The patient breathes all the time with an open mouth. Changes of the possibly related to cleft palate and nasal breathing problems. NECK: Supple, no JVD. Thyroid is not palpable. LUNGS: Clear to percussion and to auscultation. Good air exchange. No wheezing or rhonchi. HEART: S1, S2 regular. No murmurs, gallops, or rubs. ABDOMEN: Soft and nontender. Bowel sounds are present. No organomegaly appreciated. EXTREMITIES: No clubbing or cyanosis. LABEL FOLDER: Awake, alert, and oriented X3. Cranial nerves 2 to 7 intact. There is no fasciculation or atrophy. noted. No focal deficits observed. IMPRESSION: 1. Multiple awakenings from sleep with nocturia. Extreme restriction of nasal breathing. Patient always breathes with an open mouth, significant excessive daytime sleepiness. Patient sleeps by himself, so no clear information about his breathing during the sleep. Obstructive sleep apnea-hypopnea syndrome. 2. Extreme excessive daytime sleepiness. [place] Sleepiness Scale is 16. Patient is taking several naps a day and feel very sleepy during the day. Differential diagnosis include narcolepsy. 3. Hypertension in the office. 4. Sinus problems. 5. History of cleft palate, status post multiple surgery for correction. According to the patient, he still has opening in the back of his mouth. 6. Headaches. PLAN: 1. Polysomnography for evaluation of patient's breathing during sleep. 2. CPAP/BiPAP titration if sleep study confirms obstructive sleep apnea-hypopnea syndrome. 3. Preferable position during sleep on the side. 4. No driving if patient feels any sleepiness. 5. I will see patient for follow up visit to explain results of testing and following plan. 6. Multiple sleep latency test if sleep study negative for obstructive sleep apnea- hypopnea syndrome. Thank you very much for allowing me to participate in management of your patient. Sincerely, Andres Silva MD, PhD, FAASM Diplomat of [place] [employer] [place] [employer] [facility] [place] MARYLU / JANINA: [id number] /
== END | disposition home or self-care (01) ==
LOC: SLEEP 11:35
PROVIDERS: ATTEND Internal Medicine
DX: G47.33 Obstructive sleep apnea (adult) (pediatric) (principal); I10 Essential (primary) hypertension; R51 Headache; Z87.730 Personal history of (corrected) cleft lip and palate; Z98.890 Other specified postprocedural states
CPT/HCPCS: 99211

== ENCOUNTER → 2020-10-16 | Outpatient (CLI) | payer OTHER ==
--- NOTE | 2020-10-16 12:30 | XR ---
EXAMINATION TYPE: XR chest 2V DATE OF EXAM: 10/16/2020 COMPARISON: NONE HISTORY: Shortness of breath TECHNIQUE: Frontal and lateral views of the chest are obtained. FINDINGS: Scattered senescent parenchymal changes noted. Granuloma right midlung zone. No evidence for infiltrate. No evidence for atelectasis. Heart size is stable. Mediastinal structures are stable and grossly unremarkable. No evidence for hilar prominence. Degenerative changes dorsal spine. IMPRESSION: 1. No evidence for acute pulmonary disease.
--- NOTE | 2020-10-16 12:32 | XR ---
EXAMINATION TYPE: XR ribs LT DATE OF EXAM: 10/16/2020 CLINICAL HISTORY: Pain, Fall Four views of the ribs fail demonstrate evidence for displaced rib fracture or secondary sign of rib fracture. Visualized lungs are clear. No evidence for pneumothorax. IMPRESSION: No displaced rib fractures seen. ICD 10 NO FRACTURE, INITIAL EVALUATION
== END | disposition home or self-care (01) ==
LOC: RADXRMAIN 11:14
PROVIDERS: ATTEND Internal Medicine
DX: R07.81 Pleurodynia (principal); R06.02 Shortness of breath; W19.XXXA Unspecified fall, initial encounter
CPT/HCPCS: 71046

== ENCOUNTER → 2021-11-11 | Day surgery (SDC) | payer OTHER ==
--- NOTE | 2021-11-10 10:31 | HP ---
HISTORY AND PHYSICAL DATE OF SURGERY: 11/11/2021 Hernandez Klein is a 60-year-old patient seen with progressive left shoulder pain. We discussed options for treatment. He elected to proceed with left shoulder arthroscopy. Consent was obtained. PAST MEDICAL HISTORY: Noncontributory. PAST SURGICAL HISTORY: Left shoulder open rotator cuff repair. DAILY MEDICATIONS: Tylenol. ALLERGIES: NONE. SOCIAL HISTORY: He denies tobacco use. PHYSICAL EVALUATION OF THE LEFT SHOULDER: Flexion is 140 degrees, abduction 130 degrees, external rotation 20 degrees with significant weakness and pain. Tenderness along the anterolateral acromion and rotator cuff insertion. Impingement is positive at 90. Drop-arm sign is positive. Cross-body adduction sign is positive. Distal neurovascular exam is intact. Radiographs of the left shoulder revealed a type 2 acromion, evidence for acromioclavicular joint osteoarthritis and cystic changes of the greater tuberosity. MRI left shoulder revealed a rotator cuff tendon tear, acromioclavicular joint osteoarthritis and impingement. IMPRESSION: 1. Left shoulder impingement with rotator cuff tear. 2. Left shoulder acromioclavicular joint osteoarthritis. PLAN: Left shoulder arthroscopy with subacromial decompression, arthroscopic rotator cuff repair, Eileen procedure and debridement. MMODL / IJN: [id number] /
[~2021-11-11] MED LIST: DEXAMETHASONE SOD PHOSPHATE 4 MG/ML 1 ML VIAL IV ONE; GLYCOPYRROLATE 0.2 MG/ML 2 ML VIAL ONE; HYDROmorphone 0.5 MG/0.5 ML SYRINGE IVP PRN; LACTATED RINGERS 1,000 ML IV ONE; LACTATED RINGERS 1,000 ML IV SCH; LIDOCAINE 1% (10MG/ML) FOR IV START INTRADERMA PRN; MIDAZOLAM 2 MG/2 ML VIAL IV PRN; MIDAZOLAM 2 MG/2 ML VIAL IVP ONE; MIDAZOLAM 2 MG/2 ML VIAL ONE; NEOSTIGMINE 1 MG/ML 10 ML VIAL ONE; ONDANSETRON 4 MG/2 ML VIAL IVP ONE; PROPOFOL 10 MG/ML 20 ML VIAL IV ONE; ROCURONIUM 10 MG/ML (5 ML VIAL) IV ONE; ROPIVACAINE 5 MG/ML 30 ML VIAL ONE; SUCCINYLCHOLINE CHLORIDE 100 MG/5 ML SYR IV ONE; fentaNYL (PF) 50 MCG/ML 2 ML AMP IVP ONE
--- NOTE | 2021-11-11 11:52 | P.OP ---
Date of Procedure: 11/11/21 Preoperative Diagnosis: Left shoulder impingement Postoperative Diagnosis: 1. Left shoulder massive retracted rotator cuff tendon tear 2. Left shoulder impingement 3. Left shoulder acromioclavicular joint osteoarthritis 4. Left shoulder partial long head biceps tendon tear Procedure(s) Performed: 1. Left shoulder arthroscopic subacromial decompression 2. Left shoulder arthroscopic Eileen procedure 3. Left shoulder arthroscopic biceps tenotomy Anesthesia: GETA, regional (Interscalene block) Surgeon: Luis Leigh Estimated Blood Loss (ml): 11 Pathology: none sent Condition: stable Disposition: PACU Indications for Procedure: 60-year-old gentleman seen with progressive left shoulder pain. After treatment options were discussed, he elected to proceed with arthroscopy. Operative Findings: See description of procedure Description of Procedure: Patient underwent an interscalene block by department of anesthesia. The patient was then taken to the operative suite. The patient underwent a general anesthetic by the department of anesthesia. The patient was placed into a lateral position and secured. There was appropriate padding of the bony prominence. Left shoulder was then prepped and draped in normal sterile orthopedic fashion. We placed the extremity in 10 pounds of longitudinal traction. A posterior incision was now made for a posterior working portal site. The trocar and cannula were inserted into the glenohumeral joint. Arthroscopy was initiated. Spinal needle was now inserted anteriorly, to ascertain the anterior working portal site. An incision was now made in that area, a trocar was inserted followed by a probe. There was partial tearing and hyperemia involving the long head biceps tendon. There were grade 2 chondromalacia changes of the humeral head. The labrum was probed and was found to be stable. There appeared to be a massive rotator cuff tendon tear visualized from the glenohumeral joint. I performed an arthroscopic biceps tenotomy. The residual labrum and anchor were probed and were found to be stable. Instruments were removed from the glenohumeral joint. Utilizing the posterior working portal site, the trocar and cannula were inserted into the subacromial space. Arthroscopy initiated. I made an incision 2 fingerbreadths lateral to the acromion. I introduced my trocar followed by my ArthroCare ablator. I now began ablating thick subacromial bursal tissue, which exposed the undersurface of the anterior acromion. There was diminished subacromial space. There was a very prominent anterior acromion. A motorized bur was introduced and a subacromial decompression was performed. I also excised some osteophytes off the inferior aspect of the distal clavicle. The AC joint was visualized and noted to be fairly arthritic. The motorized bur was intro duced in the anterior portal site and a Eileen procedure was performed without difficulty, decompressing the AC joint nicely. I turned my attention to the rotator cuff. There was a massive retracted rotator cuff tendon tear. I grabbed onto the central portion of the tendon and it was non-mobile and retracted about a centimeter beyond the glenoid. I now began meticulously trying to free up the tendon proximally all the way around. I now mobilize it now just to the edge of the glenoid but not beyond that. The tendon tear was about 3 cm shy of the footprint at this point. I now began trying to mobilize the tendon anteriorly and posteriorly to see if I could mobilize it and converge the tendon centrally. The tendon was non-mobile and I was unable to mobilize at all. At this point this tear was massive, retracted and unrepairable. Instruments now removed from the portal sites. All portal sites were approximated with nylon suture. Sterile dressings were applied followed by a shoulder sling. The patient was awakened, transferred to a bed, and taken to recovery in stable condition.
[2021-11-11 12:00] VITALS: TEMP 97.1
[2021-11-11 12:37] VITALS: RESP 16
[2021-11-11 13:13] VITALS: BP 147/88; PULSE 57
--- NOTE | 2021-11-11 13:24 | P.ANPRN ---
Procedure Note - Anesthesia - Nerve Block Performed Left Interscalene Time Out Performed: Yes (08:41) Date of Procedure: 11/11/21 Procedure Start Time: 08:42 Procedure Stop Time: 08:46 Location of Patient: PreOp Indication: Acute Post-Operative Pain, Requested by Surgeon (Dr Leigh) Sedation Type: Sedate with meaningful contact maintained Preparation: Sterile Prep Position: Supine Catheter: None Needle Types: Pajunk Needle Gauge: 21 Ultrasound used to visualize needle placement: Yes Ultrasound used to observe medication spread: Yes Injectate: 0.5% Ropivacaine (see comment for volume) (20cc) Blood Aspirated: No Pain Paresthesia on Injection Noted: No Resistance on Injection: Normal Image Stored and Saved: Yes Events: Uneventful and Well Tolerated
== END | disposition home or self-care (01) ==
LOC: OR 07:49
PROVIDERS: ATTEND Orthopaedic Surgery
DX: M75.122 Complete rotator cuff tear or rupture of left shoulder, not specified as traumatic (principal); M75.42 Impingement syndrome of left shoulder; M19.012 Primary osteoarthritis, left shoulder; S46.112A Strain of muscle, fascia and tendon of long head of biceps, left arm, initial encounter; M94.212 Chondromalacia, left shoulder; X58.XXXA Exposure to other specified factors, initial encounter; Z87.730 Personal history of (corrected) cleft lip and palate; Z90.5 Acquired absence of kidney; Z98.890 Other specified postprocedural states; Z79.899 Other long term (current) drug therapy; Z97.2 Presence of dental prosthetic device (complete) (partial)
CPT/HCPCS: 64415; 76942; 29824; 29822; J2250; J1100; J2710; J0690; J2405; J3010; J2795; J0330; J2704

== ENCOUNTER 2022-02-04 11:18 | Day surgery (SDC) | payer OTHER ==
--- NOTE | 2022-02-04 01:30 | HP ---
HISTORY AND PHYSICAL DATE OF SURGERY: 02/04/2022. HISTORY OF PRESENT ILLNESS: Hernandez Klein is a 61-year-old gentleman seen with symptomatic right elbow olecranon bursitis. We discussed options. He elected to proceed with right elbow olecranon bursectomy. Consent is obtained. PAST MEDICAL HISTORY: Noncontributory. SURGICAL HISTORY: Shoulder arthroscopy. DAILY MEDICATIONS: Tylenol. ALLERGIES: None. SOCIAL HISTORY: Denies current tobacco use. PHYSICAL EXAMINATION: Right elbow has a very large olecranon bursal swelling with no evidence for any infection or erythema. He is tender to palpation. He has full range of motion of the elbow. He has good ligamentous stability about the elbow. His distal neurovascular exam is intact. X-rays reveal some osteoarthritic changes. IMPRESSION: Right elbow olecranon bursitis. PLAN: Right elbow olecranon bursectomy. MMODL / IJN: [id number] /
[~2022-02-04 11:18] MED LIST changes: -GLYCOPYRROLATE 0.2 MG/ML 2 ML VIAL ONE; -LACTATED RINGERS 1,000 ML IV ONE; -MIDAZOLAM 2 MG/2 ML VIAL IV PRN; -MIDAZOLAM 2 MG/2 ML VIAL IVP ONE; -MIDAZOLAM 2 MG/2 ML VIAL ONE; -NEOSTIGMINE 1 MG/ML 10 ML VIAL ONE; -ONDANSETRON 4 MG/2 ML VIAL IVP ONE; +ONDANSETRON 4 MG/2 ML VIAL IVP PRN; -PROPOFOL 10 MG/ML 20 ML VIAL IV ONE; -ROCURONIUM 10 MG/ML (5 ML VIAL) IV ONE; -ROPIVACAINE 5 MG/ML 30 ML VIAL ONE; -SUCCINYLCHOLINE CHLORIDE 100 MG/5 ML SYR IV ONE; -fentaNYL (PF) 50 MCG/ML 2 ML AMP IVP ONE
[2022-02-04] MEDS ORDERED: LIDOCAINE 2% INJ 20 MG/ML (2 ML VIAL) ONE (15:00)
[2022-02-04] MEDS ORDERED: SUCCINYLCHOLINE CHLORIDE 200 MG/10 ML VIAL IV ONE (15:00)
[2022-02-04] MEDS ORDERED: PROPOFOL 10 MG/ML 20 ML VIAL IV ONE (15:00)
[2022-02-04] MEDS ORDERED: MIDAZOLAM 2 MG/2 ML VIAL ONE (15:00)
[2022-02-04] MEDS ORDERED: fentaNYL (PF) 50 MCG/ML 2 ML AMP ONE (15:00)
[2022-02-04] MEDS ORDERED: HYDROmorphone (PF) 1 MG/ML ONE (15:00)
[2022-02-04] MEDS ORDERED: BUPIVACAINE (PF) 0.25% 30 ML VIAL SQ ONE (15:10)
--- NOTE | 2022-02-04 15:55 | P.OP ---
Date of Procedure: 02/04/22 Preoperative Diagnosis: Right elbow olecranon bursitis Postoperative Diagnosis: Right elbow olecranon bursitis Procedure(s) Performed: Right elbow olecranon bursectomy Anesthesia: NILTON, local Surgeon: Luis Leigh Financial Representative #1: Donavan Novak Estimated Blood Loss (ml): 7 Pathology: none sent Condition: stable Disposition: PACU Indications for Procedure: 61-year-old gentleman seen with a persistent symptomatic right elbow olecranon bursitis. I discussed treatment options, he elected to proceed with right elbow olecranon bursectomy. Operative Findings: See description of procedure Description of Procedure: Patient was taken to the operative suite. He underwent a general anesthetic by the department of anesthesia. He received preoperative IV antibiotics. A well- padded tourniquet was placed along the proximal right upper extremity. The right upper extremity was prepped and draped in the normal sterile orthopedic fashion. The extremity was elevated and the tourniquet was insufflated to 250. I made an incision over the right elbow olecranon bursa dissected down to the large bursa. With the assistance of Davie CAMPOS expertly retracting I carefully dissected the large bursa and excised without difficulty. I thoroughly explored the wound and noted complete excision of all the abnormal looking bursal tissue. The tendon was intact. I achieved hemostasis via electrocautery. The wound was irrigated copiously with saline solution. The subcutaneous soft tissues were now repaired with 20 and 3-0 Vicryl to tack down the skin back to the soft tissues. The skin was repaired utilizing a running subcuticular suture augmented with glue. The area was infiltrated with quarter percent plain Marcaine for postoperative pain management. We applied sterile dressings. The tourniquet was now released with immediate capillary refill noted the extremity. The sterile Davian bandage was applied. The patient was awakened having tolerated procedure well. Davie CAMPOS assisted with the procedure.
[2022-02-04] MEDS ORDERED: LACTATED RINGERS 1,000 ML IV ONE (16:08)
[2022-02-04 16:30] VITALS: TEMP 97
[2022-02-04 17:02] VITALS: RESP 18
[2022-02-04] MEDS ORDERED: HYDROcodone/APAP 5-325MG 1 EACH TAB ONE (17:04)
[2022-02-04] MEDS ORDERED: HYDROcodone/APAP 5-325MG 1 EACH TAB PO ONE (17:05)
[2022-02-04 17:19] VITALS: BP 154/87; PULSE 70
== END 2022-02-04 17:35 | disposition home or self-care (01) ==
LOC: OR 11:18
PROVIDERS: ATTEND Orthopaedic Surgery
DX: M70.21 Olecranon bursitis, right elbow (principal); N28.9 Disorder of kidney and ureter, unspecified; Z79.899 Other long term (current) drug therapy
CPT/HCPCS: 24105; J2250; J0330; J1100; J2405; J0690; J3010; J1170 ×2; J2704; J2001

== ENCOUNTER → 2023-06-10 | Outpatient (CLI) | payer OTHER ==
--- NOTE | 2023-06-11 14:02 | XR ---
EXAMINATION TYPE: XR knee complete RT DATE OF EXAM: 06/10/2023 COMPARISON: None HISTORY: Pain TECHNIQUE: Three-view right knee FINDINGS: No joint effusion is evident. Posterior superior posterior inferior patellar spurring is pr esent. Medial and lateral compartment joint spaces appear preserved. No acute fractures are evident. Follow up exams can be performed 7-10 days from acute trauma for cont inued pain. IMPRESSION: 1. No acute osseous abnormality right knee
== END | disposition home or self-care (01) ==
LOC: RADXRMAIN 14:45
PROVIDERS: ATTEND Internal Medicine
DX: M25.561 Pain in right knee (principal)

== ENCOUNTER 2024-02-02 15:44 | Emergency (ER) | payer OTHER ==
[2024-02-02 15:50] VITALS: BP 142/104; PULSE 67; RESP 18; TEMP 97.4
[2024-02-02] MEDS: fentaNYL (PF) 50 MCG/ML 2 ML AMP IVP STA (15:59)
[2024-02-02 16:00] LABS: Glucose,Whole Blood 110 mg/dL (70-110)
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
[2024-02-02 16:18] LABS: Basophils # (A) 0.1 k/uL (0-0.2); Basophils % (A) 1 %; Eosinophils # (A) 0.3 k/uL (0-0.7); Eosinophils % (A) 4 %; HCT 51.8 % (39.0-53.0); HGB 17.2 gm/dL (13.0-17.5); Lymphocytes # (A) 2.8 k/uL (1.0-4.8); Lymphocytes % (A) 33 %; MCH 29.6 pg (25.0-35.0); MCHC 33.1 g/dL (31.0-37.0); MCV 89.3 fL (80.0-100.0); Mean Platelet Volume 8.2; Monocytes # (A) 0.7 k/uL (0-1.0); Monocytes % (A) 8 %; Neutrophils # (A) 4.6 k/uL (1.3-7.7); Neutrophils % (A) 52 %; Platelet Count 225 k/uL (150-450); RDW 13.6 % (11.5-15.5); WBC 8.7 k/uL (3.8-10.6)
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
[2024-02-02] MEDS: SODIUM CHLORIDE 0.9% 1,000 ML IV STA (16:25)
[2024-02-02 16:27] LABS: ALT 19 U/L (4-49); AST 34 U/L (17-59); African American GFR (CKD) 76 (>60 ml/min/1.73 sqM); Albumin 3.5 g/dL (3.5-5.0); Alcohol <10 mg/dL; Alkaline Phosphatase 56 U/L (38-126); Anion Gap 6 mmol/L; Blood Urea Nitrogen 30 mg/dL (9-20); Calcium 8.8 mg/dL (8.4-10.2); Carbon Dioxide 20 mmol/L (22-30); Chloride 112 mmol/L (98-107); Glucose 130 mg/dL (74-99); Non-African American GFR(CKD) 65 (>60 ml/min/1.73 sqM); Potassium 4.6 mmol/L (3.5-5.1); Sodium 138 mmol/L (137-145); Total Bilirubin 0.4 mg/dL (0.2-1.3); Total Protein 5.7 g/dL (6.3-8.2)
[2024-02-02] MEDS: DIPH,PERTUS(ACELL)TETVAC-LF 0.5 ML VIAL IM ONE (16:30)
[2024-02-02 16:41] LABS: INR 0.9 (<1.2); Prothrombin Time 10.3 sec (10.0-12.5)
[2024-02-02 16:55] LABS: Partial Thromboplastin Time 21.8 sec (22.0-30.0)
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
[2024-02-02] MEDS: MORPHINE SULFATE 4 MG/ML SYRINGE IVP STA (17:51)
[2024-02-02] MEDS: ONDANSETRON 4 MG/2 ML VIAL IVP STA (17:51)
[2024-02-02] MEDS: ACETAMINOPHEN IV (For NPO) 1,000 MG in EMPTY BAG 1 BAG IVPB STA (17:54)
[2024-02-02] MEDS ORDERED: LIDOCAINE 1%/EPI 1:200,000 MPF 10 ML VIAL SUBMUCOSAL STA (18:00)
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
[2024-02-02 18:19] LABS: Appearance,Urine Clear (Clear); Bilirubin,Urine Negative (Negative); Blood,Urine Negative (Negative); Color,Urine Colorless; Glucose,Urine (UA) Negative (Negative); Ketones,Urine Negative (Negative); Leukocyte Esterase,Urine Negative (Negative); Nitrite,Urine Negative (Negative); PH, Urine 6.5 (5.0-8.0); Protein,Urine Negative (Negative); Specific Gravity,Urine 1.035 (1.001-1.035); Urobilinogen,Urine <2.0 mg/dL (<2.0)
[2024-02-02 18:36] LABS: Amphetamine Screen,Urine Not Detected (NotDetected); Barbiturate Screen,Urine Not Detected (NotDetected); Benzodiazepines Screen,Urine Not Detected (NotDetected); Cocaine Screen,Urine Detected (NotDetected); Methadone Screen, Urine Not Detected (NotDetected); Opiate Screen,Urine Not Detected (NotDetected); Oxycodone Screen, Urine Not Detected (NotDetected); Phencyclidine Screen,Urine Not Detected (NotDetected); Tricyclic Antidepressant,Urine Not Detected (NotDetected); Urn Cannabinoid Scrn Not Detected (NotDetected)
[2024-02-02] MEDS: LIDOCAINE 1%-EPI 1:100,000 20 ML VIAL SUBMUCOSAL STA (18:43)
[2024-02-02] MEDS: BACITRACIN OINT 1 EACH PACKET TOPICAL ONE (20:06)
== END 2024-02-02 21:23 | disposition home or self-care (01) ==
LOC: EC 15:44
CPT/HCPCS: 36415; 70450; 71045; 71260; 72125; 72170; 74177; 80053; 80306; 80320; 81003; 83605; 84484; 85025; 85610; 85730; 86850; 86900; 86901; 90471; 90715; 93005; 96361; 96365; 96375; 99285

== ENCOUNTER 2024-02-04 19:45 | Emergency (ER) | payer OTHER ==
[2024-02-04 19:57] VITALS: TEMP 99
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
[2024-02-04] MEDS: MORPHINE SULFATE 4 MG/ML SYRINGE IVP STA (21:33)
[2024-02-04] MEDS: ONDANSETRON 4 MG/2 ML VIAL IVP STA (21:35)
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
[2024-02-04] MEDS: HYDROmorphone 1 MG/ML 1 ML SYRINGE IVP STA (23:31)
[2024-02-04] MEDS: LIDOCAINE 4% PATCH TOPICAL ONE (23:34)
[2024-02-04 23:39] LABS: Basophils % (A) 0 %; Eosinophils # (A) 0.1 k/uL (0-0.7); Eosinophils % (A) 1 %; HCT 47.7 % (39.0-53.0); HGB 15.6 gm/dL (13.0-17.5); Lymphocytes # (A) 1.3 k/uL (1.0-4.8); Lymphocytes % (A) 12 %; MCH 29.4 pg (25.0-35.0); MCHC 32.7 g/dL (31.0-37.0); MCV 89.7 fL (80.0-100.0); Mean Platelet Volume 7.7; Monocytes # (A) 0.6 k/uL (0-1.0); Monocytes % (A) 6 %; Neutrophils # (A) 8.7 k/uL (1.3-7.7); Neutrophils % (A) 80 %; Platelet Count 178 k/uL (150-450); RBC 5.31 m/uL (4.30-5.90); RDW 13.6 % (11.5-15.5)
[2024-02-04 23:48] LABS: ALT 15 U/L (4-49); AST 25 U/L (17-59); African American GFR (CKD) 88 (>60 ml/min/1.73 sqM); Albumin 3.7 g/dL (3.5-5.0); Alkaline Phosphatase 44 U/L (38-126); Anion Gap 6 mmol/L; Blood Urea Nitrogen 16 mg/dL (9-20); Carbon Dioxide 23 mmol/L (22-30); Chloride 109 mmol/L (98-107); Glucose 123 mg/dL (74-99); Non-African American GFR(CKD) 76 (>60 ml/min/1.73 sqM); Potassium 4.3 mmol/L (3.5-5.1); Sodium 138 mmol/L (137-145); Total Bilirubin 0.5 mg/dL (0.2-1.3); Total Protein 6.2 g/dL (6.3-8.2)
[2024-02-05] MEDS: traMADol 50 MG TAB PO STA (01:08)
[2024-02-05] MEDS: traMADol 50 MG STARTER PACK 3 TAB BTL PO STA (01:08)
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
[2024-02-05 01:23] VITALS: BP 165/99; PULSE 83; RESP 19
== END 2024-02-05 01:23 | disposition home or self-care (01) ==
LOC: EC 19:45
DX: S22.42XA Multiple fractures of ribs, left side, initial encounter for closed fracture (principal); V18.4XXA Pedal cycle driver injured in noncollision transport accident in traffic accident, initial encounter
CPT/HCPCS: 36415; 93005; 80053; 84484; 85025; 73552; 73564; 93971; 71250; 96374; 96375; 99285; J2270; J2405; J1170